=== PATIENT | female | born 1960 | race Caucasian/White ===

== ENCOUNTER 2023-03-14 11:05 | Emergency (ER) | payer MEDICARE, SELFPAY | END 2023-03-14 13:27 | disposition home or self-care (01) | LOC: CSHERS 11:05 | DX: S63.502A Unspecified sprain of left wrist, initial encounter (principal); F17.210 Nicotine dependence, cigarettes, uncomplicated; X50.0XXA Overexertion from strenuous movement or load, initial encounter ==